=== PATIENT | female | born 1935 | race African-American/Black ===

== ENCOUNTER 2016-12-15 16:42 | Emergency (ER) | payer OTHER ==
[~2016-12-15] VITALS: Ht 152.4 cm; Wt 88.6 kg
[~2016-12-15 16:42] MED LIST: ALTOPREV20 MG PO; AMLODIPINE BESY10 MG PO; ASPIR 8181 M1 PO; LEVOTHYROXINE75 MCG PO; LO-DOSE ASPIRIN81 M1 PO; LOTRIMIN AF24 GM TP; LOVASTATIN20 MG PO; VALSARTAN160 MG PO; VITAMIN B 12 PO; VITAMIN B-12500 MC5 SL; XARELTO15 MG PO
[2016-12-15 17:43] LABS: MCH 26.7 PG (29.0-34.0); MCHC 30.2 G/DL (30.0-36.0); MCV 88.3 FL (83-99); RBC DIS.WIDTH-SD 45.2 % (39-53); RED BLOOD COUNT 4.87 M/uL (3.80-5.20); WHITE BLOOD COUNT 4.1 K/uL (4.1-10.2)
[2016-12-15 17:51] LABS: CHLORIDE 115 mEq/L (99-109); SODIUM 145 mEq/L (136-147)
[2016-12-15 17:52] LABS: GLUCOSE 102 mg/dL (70-99)
[2016-12-15 17:54] LABS: ANION GAP 10 MEQ/L (2-14)
[2016-12-15 17:56] LABS: GFR ESTIMATE (CALCULATED) > 59 mL/min/
[2016-12-15 17:57] LABS: UREA NITROGEN (BUN) 15 mg/dL (9-23)
[2016-12-15 18:36] LABS: HEMATOLOGY COMMENT 1 SN; MEAN PLAT.VOLUME 12.3 uM^3 (9.5-12.4); PLAT.SUFFICIENCY ADEQUATE; PLATELET COUNT 199 K/uL (156-360)
[2016-12-15 19:25] LABS: C DIFF TOXIN NEGATIVE (NEGATIVE)
[2016-12-15 19:35] LABS: PROBE CHECK PASS; SPECIMEN PROCESSING CONTROL PASS
[2016-12-15 20:10] VITALS: BP 131/75
== END 2016-12-15 20:18 | disposition home or self-care (01) ==
LOC: EME 16:42
PROVIDERS: Emergency Medicine
DX: R19.7 Diarrhea, unspecified (principal); I10 Essential (primary) hypertension; E78.5 Hyperlipidemia, unspecified; I25.10 Atherosclerotic heart disease of native coronary artery without angina pectoris; Z90.710 Acquired absence of both cervix and uterus
CPT/HCPCS: 74000; 80048; 85027; 87493; 99281; 99284

== ENCOUNTER 2017-02-03 16:25 | Emergency (ER) | payer OTHER ==
[~2017-02-03] VITALS: Ht 152.4 cm; Wt 85.5 kg
[2017-02-03 17:40] VITALS: BP 157/84
== END 2017-02-03 17:41 | disposition home or self-care (01) ==
LOC: EME 16:25
DX: L98.8 Other specified disorders of the skin and subcutaneous tissue (principal); I10 Essential (primary) hypertension; E78.5 Hyperlipidemia, unspecified; I25.10 Atherosclerotic heart disease of native coronary artery without angina pectoris
CPT/HCPCS: 99281; 99283